=== PATIENT | male | born 1970 | race Caucasian/White ===

== ENCOUNTER 2018-04-14 07:58 | Emergency (ER) | payer OTHER ==
[~2018-04-14] VITALS: Ht 185.4 cm; Wt 80.5 kg
[~2018-04-14 07:58] MED LIST: AMPYRA10 MG PO; AUGMENTIN875 MG PO; DULCOLAX10 MG PR; FLEET ENEMA-AD118 ML PR; LOPERAMIDE2 MG PO; LORATADINE10 M2 PO; MILK OF MAGN PO; MIRTAZAPINE7.5 MG PO; MULTI-VITAMIN1 EAC4 PO; VITAMIN D31000 UNIT PO; ZOLOFT100 MG PO
[2018-04-14 09:33] LABS: HEMATOCRIT 37.9 % (38.0-50.0); HEMOGLOBIN 12.1 G/DL (12.5-16.6); MCH 20.3 PG (29.0-34.0); MCHC 31.9 G/DL (30.0-36.0); MCV 63.7 FL (86-99); NRBC (%) 0.3 /100 WBC (0-0); PLATELET COUNT 151 K/uL (156-360); RBC DIS.WIDTH-CV 17.6 % (11.8-14.6); RBC DIS.WIDTH-SD 35.9 % (39-53); RED BLOOD COUNT 5.95 M/uL (4.00-5.50); WHITE BLOOD COUNT 8.7 K/uL (4.1-10.2)
[2018-04-14 09:49] LABS: CHLORIDE 108 MEQ/L (99-109); POTASSIUM 4.1 MEQ/L (3.7-5.4); SODIUM 140 MEQ/L (136-147)
[2018-04-14 09:55] LABS: CREATININE 0.9 MG/DL (0.6-1.3); GFR ESTIMATE (CALCULATED) > 59 mL/min/ (58.99-99999); GLUCOSE 96 mg/dL (70-99); UREA NITROGEN (BUN) 11 mg/dL (9-23)
[2018-04-14 11:01] LABS: APPEARANCE CLOUDY ((CLEAR)); BILIRUBIN NEGATIVE; BLOOD SMALL; COLOR YELLOW ((YELLOW)); GLUCOSE (STRIP) NEGATIVE; KETONES NEGATIVE; LEUKOCYTES NEGATIVE; NITRITE NEGATIVE; PROTEIN (STRIP) NEGATIVE; SPECIFIC GRAVITY 1.025 (1.000-1.030)
[2018-04-14 11:23] LABS: EPITHELIAL CELLS NONE SEEN /HPF; MUCUS 3+ /LPF; RED BLOOD CELLS RARE /HPF (0-5); WHITE BLOOD CELLS NONE SEEN /HPF (0-5)
[2018-04-14 11:24] LABS: BACTERIA RARE /HPF
[2018-04-14 11:25] LABS: FINE GRANULAR CASTS RARE /LPF
[2018-04-14 11:26] LABS: AMORPHOUS URATES CRYSTALS 3+
[2018-04-14 13:27] VITALS: BP 125/83
== END 2018-04-14 13:43 ==
LOC: EME 07:58
PROVIDERS: Nurse Practitioner Family
DX: G35 Multiple sclerosis (principal); R25.2 Cramp and spasm; Z87.01 Personal history of pneumonia (recurrent)
CPT/HCPCS: 71046; 80048; 81003; 85027; 99281; 99285; J2930; J7050